=== PATIENT | female | born 1965 | race Caucasian/White ===

== ENCOUNTER 2018-07-15 10:01 | Day surgery (SDC) | payer OTHER ==
[~2018-07-15] VITALS: Ht 162.6 cm; Wt 63.5 kg
[~2018-07-15 10:01] MED LIST: BUPIVAC MPF-EPI 0.5%-1:200000 30 ML VIAL. ONE; HYDROmorphone 2 MG/ML VIAL IV PRN; IV RINGERS,LACTATED 1000ML 1,000 ML IV SCH; LIDOCAINE 1% PF 2 ML VIAL. ID PRN; MORPHINE SULFATE 2 MG/ML VIAL. IV PRN; ONDANSETRON PF 4 MG/2 ML VIAL. IV PRN; PROCHLORPERAZINE 10 MG/2 ML VIAL. IV PRN; fentaNYL PF VIAL 100 MCG/2 ML VIAL IV PRN
[2018-07-15] MEDS ORDERED: ALLO300T PO (10:26)
[2018-07-15] MEDS ORDERED: ASPI-630 PO (10:27)
[2018-07-15] MEDS ORDERED: MULT1TAB52 PO (10:28)
[2018-07-15] MEDS ORDERED: fentaNYL PF VIAL 100 MCG/2 ML VIAL ONE ×2 (10:48→11:45)
[2018-07-15] MEDS ORDERED: ROCURONIUM 50 MG/5 ML VIAL. ONE (10:48)
[2018-07-15] MEDS ORDERED: GLYCOPYRROLATE 1 MG/5 ML VIAL. ONE (11:08)
[2018-07-15] MEDS ORDERED: DEXAMETHASONE SOD PHOS 20 MG/5 ML VIAL. ONE (11:09)
[2018-07-15] MEDS ORDERED: ONDANSETRON PF 4 MG/2 ML VIAL. ONE (11:09)
[2018-07-15] MEDS ORDERED: FAMOTIDINE 20 MG/2 ML VIAL ONE (11:09)
[2018-07-15] MEDS ORDERED: PROPOFOL 20 ML IV ONE (11:09)
[2018-07-15] MEDS ORDERED: LIDOCAINE 2% PF Vial for OR 5 ML VIAL. ONE (11:09)
[2018-07-15] MEDS ORDERED: ePHEDrine PF IN SALINE 50 MG/5 ML DISP.SYRIN IV ONE (11:10)
[2018-07-15] MEDS ORDERED: NEOSTIGMINE METHYLSULFATE 5 MG/5 ML SYRINGE. ONE (11:13)
[2018-07-15] MEDS ORDERED: SEVOFLURANE 31 TO 60 MINUTES. IH ONE (11:27)
--- NOTE | 2018-07-15 11:28 | PDOC4 ---
Operative Note Operative Note Date: 07/15/2018 Preoperative diagnosis: Chronic cholecystitis Postoperative diagnosis: The same Procedure: Laparoscopic cholecystectomy Surgeon: Harry Specimen: Gallbladder Dictation: Patient is a 52-year-old female with right upper quadrant abdominal pain postprandial nausea and an ultrasound showing gallstones. Procedure of laparoscopic cholecystectomy was explained to the patient detail was benefits were also discussed including bleeding infection injury to intra-abdominal contents possibly necessitating further or open operations. The patient seemed understanding gave both verbal and written consent had procedure performed. Patient was taken to the operating room placed in supine position general anesthesia was initiated once patient was asleep and intubated her abdomen was prepped and draped usual sterile fashion using ChloraPrep. The left upper quadrant was injected with quarter percent Marcaine with epinephrine incision was made lead blade scalpel and using a 5 mm Visiport was placed under direct visualization into the abdomen creating pneumoperitoneum once this was complete a 5 mm camera was placed within the abdomen which was inspected looking for adhesions from her previous surgery she had a few adhesions low in the pelvis and below the umbilicus at this point a 11 mm port was placed at the umbilicus along with three more 5 mm ports one in the epigastrium 2 in the right upper quadrant. The dome of the gallbladder was grasped retracted cephalad the infundibulum of the gallbladder's grasped tract laterally exposing the triangle adherent tissues the triangle are taken down with blunt dissection exposing the cystic duct and cystic artery both were doubly clipped and transected the gallbladder was taken off the liver with hook left cautery placed in Endo Catch bag and removed from the umbilicus the right upper quadrant was irrigated and suctioned dry hemostasis didn't be appropriate and the pneumoperitoneum was reduced all ports removed the fascial defect at the umbilicus closed figure-of- eight 0 Vicryl suture and the skin was approximated all port sites with 40 septic or Monocryl Mastisol Steri-Strips and island dressings were applied. Ring room taken recovery in stable condition all sponge instrument needle counts listed as correct estimated blood loss 5 mL BRISEYDA WEAVER MD Jul 15, 2018 11:28
--- NOTE | 2018-07-15 11:29 | DISCH ---
DISCHARGE INSTRUCTIONS Condition on Discharge Condition on Discharge: Stable Activity After Discharge Activity Instructions for Disc: Avoid exertion Other activity instructions: no lifting more than 20 pounds for 2 weeks Diet after Discharge Diet after Discharge: Low Fat Wound Incision Care Other wound/incision instructi: May shower in 24 hours Contacting the after DC Call your doctor for: If your condition worsens Follow-Up Follow up with: Dr. Weaver in 2 weeks BRISEYDA WEAVER MD Jul 15, 2018 11:29
[2018-07-15] MEDS: fentaNYL PF VIAL 100 MCG/2 ML VIAL IV PRN ×2 (11:47→12:14)
[2018-07-15] MEDS ORDERED: PROCHLORPERAZINE 10 MG/2 ML VIAL. ONE (11:49)
[2018-07-15] MEDS ORDERED: OXYC-323 PO (12:24)
[2018-07-15] MEDS ORDERED: oxyCODONE/APAP 5/325 1 TAB TABLET ONE (12:41)
[2018-07-15] MEDS ORDERED: oxyCODONE/APAP 5/325 1 TAB TABLET PO ONE (12:45)
[2018-07-15 12:55] VITALS: BP 126/66
--- NOTE | 2018-07-18 18:06 | PATHOLOGY ---
[facility] Accession Number: [id number] . 01 Material submitted: . GALLBLADDER . 01 Clinical history: . Symptomatic cholelithiasis . 02 Diagnosis: Gallbladder, cholecystectomy: - Chronic cholecystitis. - Cholelithiasis. - Cholesterolosis. (SK:[facility] 07/16/2018) QT/07/16/2018 . 02 Electronically signed: . Jacob Irvin MD, Pathologist NPI- [id number] . 01 Gross description: . The specimen is received in formalin, labeled "Velia Lopez, gallbladder", is an elongated, distended gallbladder measuring 10.5 x 2.6 x 2.0 cm with a glistening, smooth and green-purple serosa. The lumen is filled with yellow-green viscous bile and several irregular to multifaceted quintero-brown calculi and its fragments measuring 3.0 x 2.5 x 1.5 cm in aggregate. The mucosa is diffusely covered by yellow flecks. The wall measures up to 0.1 cm thick. No discrete masses are identified. [employer] tissue is submitted in A1. ([facility]; 07/15/2018) SHS/SHS . 02 Pathologist provided ICD-10: K80.10, K82.4 . 02 CPT . 256932 Specimen Comment: A courtesy copy of this report has been sent to Specimen Comment: [phone], . Specimen Comment: Report sent to / DR HSIEH Performed at: 01 [facility] [address], [place], [place] [id number] MD aCli Kuo MD Phone: [phone] Performed at: 02 [facility] [address] [place], [place] [id number] MD Irwin Quintana MD Phone: [phone]
== END 2018-07-15 13:05 | disposition home or self-care (01) ==
LOC: SURG 10:01
PROVIDERS: ATTEND Surgery
DX: K80.10 Calculus of gallbladder with chronic cholecystitis without obstruction (principal); Z88.5 Allergy status to narcotic agent; Z91.041 Radiographic dye allergy status; Z98.51 Tubal ligation status; Z87.891 Personal history of nicotine dependence; Z79.82 Long term (current) use of aspirin; Z79.899 Other long term (current) drug therapy; Z85.72 Personal history of non-Hodgkin lymphomas; Z90.49 Acquired absence of other specified parts of digestive tract; Z98.890 Other specified postprocedural states
CPT/HCPCS: 47562; 88304; A7015; J0690; J0780; J1100; J2001; J2405; J2704; J2710; J3010; J3490; J7030